=== PATIENT | male | born 1960 | race Asian ===

== ENCOUNTER 2020-03-17 17:10 | Emergency (ER) | payer SELFPAY ==
[~2020-03-17] VITALS: Ht 154.9 cm; Wt 44.1 kg
[2020-03-17 17:16] VITALS: BP 119/84; TEMP 98.2
[2020-03-17] MEDS ORDERED: MOBIC 7.5MG7.5 MG PO (17:40)
[2020-03-17] MEDS ORDERED: FLEXERIL 1010 MG/TAB PO (17:43)
[2020-03-17 17:57] VITALS: PULSE 75
== END 2020-03-17 17:57 | disposition home or self-care (01) ==
LOC: COL.ER 17:10 → EDSEX 17:11 → COL.ER 17:11
DX: S76.111A Strain of right quadriceps muscle, fascia and tendon, initial encounter (principal); X58.XXXA Exposure to other specified factors, initial encounter